=== PATIENT | female | born 1955 | race Two or more races ===

== ENCOUNTER → 2022-01-26 | Outpatient (CLI) | payer MEDICAID ==
[2022-01-26 10:26] LABS: Basophils # (auto) 0 10 ^3/uL (0-0.2); Basophils % (auto) 0.6 % (0.0-2.0); Eosinophils # (auto) 0.1 10 ^3/uL (0-0.8); Eosinophils % (auto) 1.7 % (0.0-7.0); Hematocrit 46.2 % (36.0-46.0); Hemoglobin 16.1 g/dL (12.2-16.2); Lymphocytes # (auto) 1.1 10 ^3/uL (0.4-5.4); Lymphocytes % (auto) 17.8 % (10.0-50.0); Mean Corpuscular Hemoglobin 33.5 pg (28.0-32.0); Mean Corpuscular Hgb Conc. 34.8 g/dL (32.0-36.0); Mean Corpuscular Volume 96.4 fL (80.0-100.0); Monocytes # (auto) 0.4 10 ^3/uL (0-1.3); Monocytes % (auto) 6.6 % (0.0-12.0); Neutrophils # (auto) 4.7 10 ^3/uL (1.6-8.6); Neutrophils % (auto) 73.3 % (37.0-80.0); Nucleated Red Blood Cells % 0.1 %; Red Blood Cells 4.79 10^6/uL (4.0-5.20); Red Cell Distribution Width 13.1 % (11.8-14.3); White Blood Cell 6.4 10^3/uL (4.4-10.8)
[2022-01-26 11:05] LABS: Calcium 9.4 mg/dL (8.5-10.1)
[2022-01-26 11:11] LABS: BUN/Creatinine Ratio 18.8
== END | disposition home or self-care (01) ==
LOC: LAB 09:49
PROVIDERS: ATTEND Internal Medicine
DX: I10 Essential (primary) hypertension (principal); E11.9 Type 2 diabetes mellitus without complications; E78.5 Hyperlipidemia, unspecified
CPT/HCPCS: 36415; 80048; 80061; 82306; 83036; 84439; 84443; 85025

== ENCOUNTER → 2022-06-21 | Outpatient (CLI) | payer MEDICAID ==
[~2022-06-21] VITALS: Ht 165.1 cm; Wt 86.6 kg
[~2022-06-21] MED LIST: ADENOSINE 73 MG in GIVE UN-DILUTED 0 ML IV ONE; ADENOSINE 90 MG/30 ML INJ IV ONE; cloNIDine HCL 0.1 MG TAB ONE; cloNIDine HCL 0.1 MG TAB PO ONE
== END | disposition home or self-care (01) ==
LOC: Rad HDHVI 08:11
PROVIDERS: ATTEND Internal Medicine Cardiovascular Disease
DX: R06.02 Shortness of breath (principal); J44.9 Chronic obstructive pulmonary disease, unspecified; E11.21 Type 2 diabetes mellitus with diabetic nephropathy; E11.40 Type 2 diabetes mellitus with diabetic neuropathy, unspecified; E11.65 Type 2 diabetes mellitus with hyperglycemia; I10 Essential (primary) hypertension; E78.00 Pure hypercholesterolemia, unspecified; Z82.49 Family history of ischemic heart disease and other diseases of the circulatory system
CPT/HCPCS: 78452; 93005; 96374; 96375; A9500; J0153

== ENCOUNTER → 2022-06-28 | Outpatient (CLI) | payer MEDICAID | END | disposition home or self-care (01) | LOC: Rad HDHVI 10:50 | PROVIDERS: ATTEND Internal Medicine Cardiovascular Disease | DX: I11.9 Hypertensive heart disease without heart failure (principal); E78.5 Hyperlipidemia, unspecified | CPT/HCPCS: 93306 ==

== ENCOUNTER 2023-10-05 15:08 | Inpatient (IN) | payer OTHER, MEDICAID ==
[~2023-10-05] VITALS: Ht 166.4 cm; Wt 86.3 kg
[2023-10-05 15:57] LABS: Basophils # (auto) 0 10 ^3/uL (0-0.2); Basophils % (auto) 0.6 % (0.0-2.0); Eosinophils # (auto) 0.1 10 ^3/uL (0-0.8); Eosinophils % (auto) 1.7 % (0.0-7.0); Hematocrit 43.5 % (36.0-46.0); Hemoglobin 15.4 g/dL (12.2-16.2); Lymphocytes # (auto) 1.4 10 ^3/uL (0.4-5.4); Lymphocytes % (auto) 16.7 % (10.0-50.0); Mean Corpuscular Hemoglobin 34.6 pg (28.0-32.0); Mean Corpuscular Hgb Conc. 35.4 g/dL (32.0-36.0); Mean Corpuscular Volume 97.7 fL (80.0-100.0); Monocytes # (auto) 0.6 10 ^3/uL (0-1.3); Monocytes % (auto) 7.7 % (0.0-12.0); Neutrophils # (auto) 5.9 10 ^3/uL (1.6-8.6); Neutrophils % (auto) 73.3 % (37.0-80.0); Nucleated Red Blood Cells % 0.1 %; Red Blood Cells 4.46 10^6/uL (4.0-5.20); Red Cell Distribution Width 12.8 % (11.8-14.3); White Blood Cell 8.1 10^3/uL (4.4-10.8)
[2023-10-05 16:03] LABS: Chloride 105 mmol/L (98-107); Potassium 3.4 mmol/L (3.5-5.1); Sodium 139 mmol/L (136-145)
[2023-10-05 16:04] LABS: Calcium 9.6 mg/dL (8.7-10.4)
[2023-10-05 16:09] LABS: BUN/Creatinine Ratio 15.5 (10.0-20.0); Blood Urea Nitrogen 15 mg/dL (9-23); Glucose 267 mg/dL (74-106)
[2023-10-05 16:10] LABS: Blood Alcohol < 3.0 mg/dL (<10)
[2023-10-05 16:38] LABS: Anion Gap 7 (5-15); Carbon Dioxide 27 mmol/L (20-30)
[2023-10-05 16:48] LABS: Amphetamine Screen, Urine Neg (NEGATIVE); Barbiturate Scree,Urine Neg (NEGATIVE); Benzodiazephine Screen, Urine Neg (NEGATIVE); Cannabinoid Screen, Urine Neg (NEGATIVE); Cocaine Screen, Urine Neg (NEGATIVE); Opiate Scree,Urine Neg (NEGATIVE); Phencyclidine Screen, Urine Neg (NEGATIVE)
[2023-10-05] MEDS: ASPirin 81 mg TAB PO ONE (16:48)
[2023-10-05] MEDS: hydrALAZINE HCL 20 MG/ML VL IV ONE (16:49)
[2023-10-05 16:52] VITALS: PULSE 85; RESP 19; O2SAT 96
[2023-10-05 17:00] VITALS: PULSE 90; RESP 16; O2SAT 95
[2023-10-05] MEDS: LABETALOL HCL 20 MG/4 ML VL IV ONE (17:45)
[2023-10-05] MEDS ORDERED: MORPHINE SULFATE INJ 2 MG/ml SYRG IV PRN (17:45)
[2023-10-05] MEDS ORDERED: HYDROmorphone HCL 2 MG/ML VL/or syr IV PRN (17:45)
[2023-10-05] MEDS ORDERED: HYDROcodone-ACET 5/325MG TAB PO PRN (17:45)
[2023-10-05] MEDS ORDERED: ONDANSETRON HCL 4 MG/2 ML VIAL IV PRN (17:45)
[2023-10-05] MEDS ORDERED: DEXTROSE (50%) 50ML SYRG IV PRN (19:00)
[2023-10-05 19:30] VITALS: PULSE 77; RESP 12; O2SAT 95
[2023-10-05] MEDS: ACCU-CHEK COMFORT CURVE STRIP VI SCH (21:55)
[2023-10-05] MEDS: InsuLIN REG 1unit/0.01ml Soln (100units/ml) SC SCH (21:55)
[2023-10-05] MEDS: SODIUM CHLOR 0.9% PF (SALINE LOCK) 10ML VIAL/SYR IV SCH (22:04)
[2023-10-06] MEDS: ACETAMINOPHEN 325 MG TAB PO PRN (01:24)
[2023-10-06] MEDS: cloNIDine HCL 0.1 MG TAB PO ONE ×2 (03:29→05:53)
[2023-10-06] MEDS: cloNIDine HCL 0.1 MG TAB ONE (06:09)
[2023-10-06 08:15] VITALS: PULSE 56; RESP 16; O2SAT 91
[2023-10-06] MEDS: ENOXAPARIN SOD 40 MG/0.4 ML SYRINGE SC SCH (10:55)
[2023-10-06] MEDS ORDERED: CETI10CA PO (16:24)
[2023-10-06] MEDS ORDERED: LEV100T PO (16:24)
[2023-10-06] MEDS: NITROGLYCERIN 0.4 MG SL TAB SL PRN (19:08)
[2023-10-06 19:30] VITALS: PULSE 74; RESP 16; O2SAT 98
[2023-10-06] MEDS ORDERED: hydrALAZINE HCL 20 MG/ML VL IV SCH (22:45)
[2023-10-06] MEDS: hydrALAZINE HCL 20 MG/ML VL IV PRN (23:11)
[2023-10-07] MEDS: cloNIDine HCL 0.1 MG TAB PO ONE ×2 (01:28→04:39)
[2023-10-07] MEDS: DOCUSATE SOD 100 MG CAP PO SCH (07:06)
[2023-10-07 07:30] VITALS: PULSE 83; RESP 19; O2SAT 98
[2023-10-07] MEDS: NIFEdipine ER 30 MG TAB PO SCH (17:19)
[2023-10-07 19:30] VITALS: PULSE 80; RESP 18; O2SAT 95
[2023-10-07] MEDS: CARVEDILOL 12.5 MG TAB PO SCH (22:20)
[2023-10-07 22:25] VITALS: BP 182/84; PULSE 90; RESP 20; TEMP 98.2; O2SAT 95
[2023-10-08] VITALS (8 sets, daily range): BP systolic 148–167; BP diastolic 77–88; PULSE 67–87; RESP 15–18; TEMP 97.5–98.3; O2SAT 91–99
[2023-10-08] MEDS: LEVOTHYROXINE SODIUM 100 MCG TAB PO SCH (05:49)
[2023-10-08 06:52] LABS: Basophils # (auto) 0 10 ^3/uL (0-0.2); Eosinophils # (auto) 0.1 10 ^3/uL (0-0.8); Lymphocytes # (auto) 1.1 10 ^3/uL (0.4-5.4); Nucleated Red Blood Cells % 0.1 %; White Blood Cell 7.8 10^3/uL (4.4-10.8)
[2023-10-08 06:55] LABS: Basophils % (auto) 0.3 % (0.0-2.0); Eosinophils % (auto) 1.2 % (0.0-7.0); Hematocrit 43.2 % (36.0-46.0); Hemoglobin 15.3 g/dL (12.2-16.2); Lymphocytes % (auto) 14.3 % (10.0-50.0); Mean Corpuscular Hemoglobin 34.4 pg (28.0-32.0); Mean Corpuscular Hgb Conc. 35.4 g/dL (32.0-36.0); Mean Corpuscular Volume 97.2 fL (80.0-100.0); Monocytes # (auto) 0.5 10 ^3/uL (0-1.3); Monocytes % (auto) 6.5 % (0.0-12.0); Neutrophils # (auto) 6.1 10 ^3/uL (1.6-8.6); Neutrophils % (auto) 77.7 % (37.0-80.0); Red Blood Cells 4.44 10^6/uL (4.0-5.20); Red Cell Distribution Width 13.1 % (11.8-14.3)
[2023-10-08 06:57] LABS: Anion Gap 8 (5-15); Carbon Dioxide 26 mmol/L (20-30); Chloride 106 mmol/L (98-107); Potassium 3.3 mmol/L (3.5-5.1); Sodium 140 mmol/L (136-145)
[2023-10-08 06:58] LABS: Calcium 9.7 mg/dL (8.7-10.4)
[2023-10-08 07:03] LABS: BUN/Creatinine Ratio 11.3 (10.0-20.0); Blood Urea Nitrogen 9 mg/dL (9-23); Glucose 209 mg/dL (74-106)
[2023-10-08] MEDS ORDERED: amLODIPine BESYLATE 5 MG TAB PO SCH (10:00)
[2023-10-08] MEDS ORDERED: LEVOTHYROXINE SODIUM 100 MCG TAB PO SCH (10:30)
[2023-10-08] MEDS: NIFEdipine ER 30 MG TAB PO SCH (22:09)
[2023-10-09] VITALS (7 sets, daily range): BP systolic 147–158; BP diastolic 71–85; PULSE 70–80; RESP 18–20; TEMP 97.6–98.4; O2SAT 94–100
[2023-10-10] VITALS (7 sets, daily range): BP systolic 125–162; BP diastolic 62–117; PULSE 65–79; RESP 16–20; TEMP 97.9–98.6; O2SAT 91–96
== END 2023-10-10 19:12 | DRG 281 ==
LOC: ER 15:14 → TELE 17:48 → WEST WING 10-07 17:48 → TELE-WESTW 10-07 21:50 → WEST WING 10-09 15:59
PROVIDERS: ADMIT Internal Medicine; ATTEND Internal Medicine
DX: I16.1 Hypertensive emergency (principal); I24.9 Acute ischemic heart disease, unspecified; I21.A1 Myocardial infarction type 2; R45.851 Suicidal ideations; Z59.02 Unsheltered homelessness; E03.9 Hypothyroidism, unspecified; E11.319 Type 2 diabetes mellitus with unspecified diabetic retinopathy without macular edema; I10 Essential (primary) hypertension; F32.A Depression, unspecified; Z79.4 Long term (current) use of insulin; Z88.6 Allergy status to analgesic agent; Z88.2 Allergy status to sulfonamides
CPT/HCPCS: 36415; 71046; 80048; 80307; 80320; 82962; 83690; 84484; 85025; 93005; 93306; G0378; J1815

== ENCOUNTER → 2024-12-18 | Outpatient (CLI) | payer OTHER, MEDICAID ==
[~2024-12-18] MED LIST changes: -ADENOSINE 73 MG in GIVE UN-DILUTED 0 ML IV ONE; -ADENOSINE 90 MG/30 ML INJ IV ONE; +CETI10CA PO; +LEVO-849 PO; -cloNIDine HCL 0.1 MG TAB ONE; -cloNIDine HCL 0.1 MG TAB PO ONE
[2024-12-18 09:35] LABS: Hematocrit 44.1 % (36.0-46.0); Hemoglobin 15.6 g/dL (12.2-16.2); Mean Corpuscular Hemoglobin 33.9 pg (28.0-32.0); Mean Corpuscular Volume 96.0 fL (80.0-100.0); Nucleated Red Blood Cells % 0.0 %
[2024-12-18 10:13] LABS: Alanine Aminotransferase 28 U/L (7-40); Albumin 4.4 g/dL (3.2-4.8); Alkaline Phosphatase 89 U/L (46-116); Anion Gap 10 (5-15); BUN/Creatinine Ratio 16.7 (10.0-20.0); Bilirubin, Total 0.6 mg/dL (0.2-1.0); Blood Urea Nitrogen 16 mg/dL (9-23); Calcium 9.7 mg/dL (8.7-10.4); Carbon Dioxide 29 mmol/L (20-31); Chloride 103 mmol/L (98-107); Cholesterol 148 mg/dL (< 200); HDL Cholesterol 56 mg/dL (40-59); Potassium 3.7 mmol/L (3.5-5.1); Sodium 142 mmol/L (136-145); Total Protein 6.9 g/dL (5.7-8.2); Triglycerides 116 mg/dL (< 150)
[2024-12-18 10:18] LABS: Glucose 143 mg/dL (74-106)
== END | disposition home or self-care (01) ==
LOC: LAB 09:14
PROVIDERS: ATTEND Internal Medicine
DX: I12.9 Hypertensive chronic kidney disease with stage 1 through stage 4 chronic kidney disease, or unspecified chronic kidney disease (principal); E11.22 Type 2 diabetes mellitus with diabetic chronic kidney disease; N18.2 Chronic kidney disease, stage 2 (mild); E03.9 Hypothyroidism, unspecified; D58.2 Other hemoglobinopathies; Z00.01 Encounter for general adult medical examination with abnormal findings
CPT/HCPCS: 36415; 80053; 80061; 83036; 84439; 84443; 85025